=== PATIENT | male | born 1940 | race Caucasian/White ===

== ENCOUNTER 2018-01-24 01:04 | Observation (INO) | payer OTHER ==
[2018-01-24] MEDS: ONDANSETRON 4 MG INJ IV (01:50)
[2018-01-24 01:54] LABS: ADD MAN DIFF? NO
[2018-01-24 01:58] LABS: WHITE BLOOD COUNT 8.9 10^3/ul (4.8-10.8)
[2018-01-24 01:58] LABS: BASOPHILS % 0.2 % (0.0-2.0); EOSINOPHILS # 0.1 10^3/ul (0.0-0.5); EOSINOPHILS % 1.4 % (0.0-7.0); HEMATOCRIT 42.1 % (42.0-52.0); HEMOGLOBIN 14.5 g/dl (14.0-18.0); LYMPHOCYTES # 3.8 10^3/ul (0.8-2.9); LYMPHOCYTES % 43.4 % (15.0-51.0); MEAN CORPUSCULAR HGB CONC 34.4 g/dl (32.0-37.0); MEAN CORPUSCULAR VOLUME 98.8 fl (82.0-101.0); MEAN PLATELET VOLUME 10.5 fl (7.4-10.4); MONOCYTE # 0.6 10^3/ul (0.3-0.9); NEUTROPHIL # 4.2 10^3/ul (1.6-7.5); NEUTROPHILS % 47.8 % (39.0-77.0); PLATELET COUNT 123 10^3/UL (140-415); RED BLOOD COUNT 4.26 10^6/ul (4.70-6.10); RED CELL DISTRIBUTION WIDTH 13.2 % (11.5-14.5)
[2018-01-24 02:16] LABS: ANION GAP 13 (8-16); BLOOD UREA NITROGEN 15 mg/dl (7-20); CARBON DIOXIDE 26 mmol/L (21-31); CHLORIDE 108 mmol/L (97-110); CREATININE 1.02 mg/dl (0.61-1.24); GLUCOSE 107 mg/dl (70-220); POTASSIUM 4.1 mmol/L (3.5-5.1); SODIUM 143 mmol/L (135-144)
[2018-01-24 02:17] LABS: INR 1.04; PROTIME 13.7 Sec (11.9-14.9); PT RATIO 1.1
[2018-01-24 02:27] LABS: B-TYPE NATRIURETIC PEPTIDE 86 PG/ML (0-450)
[2018-01-24 02:29] LABS: TROPONIN-I < 0.012 ng/ml (0.00-0.12)
[2018-01-24] MEDS: ATROPINE 1 MG INJ IV (03:53)
[2018-01-24] MEDS ORDERED: ACETAMINOPHEN 325 MG TAB PO (05:00)
[2018-01-24] MEDS ORDERED: NITROGLYCERIN (SL) 0.4 MG TAB SL (05:00)
[2018-01-24] MEDS ORDERED: BISACODYL (EC) 5 MG TAB PO (05:00)
[2018-01-24] MEDS ORDERED: DOCUSATE SODIUM 100 MG CAP PO (05:00)
[2018-01-24] MEDS ORDERED: ONDANSETRON 4 MG INJ IV (05:00)
[2018-01-24 06:10] LABS: HEMOGLOBIN A1C 5.3 % (0-5.9)
[2018-01-24 06:15] LABS: MAGNESIUM 1.9 mg/dl (1.7-2.5)
[2018-01-24 07:54] LABS: CREATINE KINASE 52 IU/L (23-200)
[2018-01-24 08:06] LABS: CK INDEX 1.3; TROPONIN-I 0.013 ng/ml (0.00-0.12)
[2018-01-24 08:07] LABS: CK-MB 0.65 ng/ml (0.0-2.4)
[2018-01-24] MEDS: FINASTERIDE 5 MG TAB PO (08:22)
[2018-01-24] MEDS: NACL 0.9% 3 ML SYG IV (08:23)
[2018-01-24 13:46] LABS: CREATINE KINASE 42 IU/L (23-200)
[2018-01-24 14:00] LABS: CK INDEX 1.3
[2018-01-24 14:02] LABS: CK-MB 0.54 ng/ml (0.0-2.4); TROPONIN-I < 0.012 ng/ml (0.00-0.12)
[2018-01-24] MEDS: TAMSULOSIN (SR) 0.4 MG CAP PO (16:39)
[2018-01-24] MEDS: ATORVASTATIN 40 MG TAB PO (23:29)
[2018-01-25 06:25] LABS: ADD MAN DIFF? NO
[2018-01-25 06:29] LABS: WHITE BLOOD COUNT 7.4 10^3/ul (4.8-10.8)
[2018-01-25 06:29] LABS: BASOPHILS % 0.1 % (0.0-2.0); EOSINOPHILS # 0.1 10^3/ul (0.0-0.5); EOSINOPHILS % 1.1 % (0.0-7.0); HEMATOCRIT 41.7 % (42.0-52.0); HEMOGLOBIN 14.3 g/dl (14.0-18.0); LYMPHOCYTES % 39.9 % (15.0-51.0); MEAN CORPUSCULAR HEMOGLOBIN 33.6 pg (29.0-33.0); MEAN CORPUSCULAR HGB CONC 34.3 g/dl (32.0-37.0); MEAN CORPUSCULAR VOLUME 97.9 fl (82.0-101.0); MEAN PLATELET VOLUME 10.3 fl (7.4-10.4); MONOCYTE # 0.5 10^3/ul (0.3-0.9); MONOCYTES % 6.9 % (0.0-11.0); NEUTROPHIL # 3.8 10^3/ul (1.6-7.5); NEUTROPHILS % 51.7 % (39.0-77.0); PLATELET COUNT 111 10^3/UL (140-415); RED BLOOD COUNT 4.26 10^6/ul (4.70-6.10); RED CELL DISTRIBUTION WIDTH 13.2 % (11.5-14.5)
[2018-01-25 06:49] LABS: CREATINE KINASE 39 IU/L (23-200)
[2018-01-25 06:57] LABS: ALANINE AMINOTRANSFERASE 18 IU/L (13-69); ALBUMIN 3.7 g/dl (3.3-4.9); ALBUMIN/GLOBULIN RATIO 1.27; ALKALINE PHOSPHATASE 52 IU/L (42-121); ANION GAP 14 (8-16); ASPARTATE AMINO TRANSFERASE 17 IU/L (15-46); BILIRUBIN,INDIRECT 0.5 mg/dl (0-1.1); BILIRUBIN,TOTAL 0.5 mg/dl (0.2-1.3); BLOOD UREA NITROGEN 16 mg/dl (7-20); CALCIUM 9.2 mg/dl (8.4-10.2); CARBON DIOXIDE 28 mmol/L (21-31); CHLORIDE 106 mmol/L (97-110); CREATININE 0.91 mg/dl (0.61-1.24); GLUCOSE 100 mg/dl (70-220); POTASSIUM 4.4 mmol/L (3.5-5.1); SODIUM 144 mmol/L (135-144); TOTAL PROTEIN 6.6 g/dl (6.1-8.1)
[2018-01-25 07:02] LABS: CK INDEX 1.5; TROPONIN-I < 0.012 ng/ml (0.00-0.12)
[2018-01-25 07:21] LABS: CHOL/HDL RATIO 3.7 RATIO; HDL CHOLESTEROL 45 mg/dl (31-75); LDL CHOLESTEROL,CALCULATED 94 mg/dl; TRIGLYCERIDES 150 mg/dl (0-149)
[2018-01-25 07:21] LABS: CHOLESTEROL 169 mg/dl (100-200)
[2018-01-25] MEDS: ASPIRIN (EC) 81 MG TAB PO (08:25)
[2018-01-25] MEDS: FINASTERIDE 5 MG TAB PO (08:25)
[2018-01-25 08:42] LABS: FREE T4 (FREE THYROXINE) 1.17 ng/dl (0.78-2.44)
[2018-01-25] MEDS: REGADENOSON 0.4 MG/5 ML SYG (09:52)
== END 2018-01-25 15:00 | disposition home or self-care (01) ==
LOC: E/R 01:04 → MS3 04:57
DX: R07.9 Chest pain, unspecified (principal); I25.10 Atherosclerotic heart disease of native coronary artery without angina pectoris; Z95.5 Presence of coronary angioplasty implant and graft; R00.1 Bradycardia, unspecified; R42 Dizziness and giddiness; I10 Essential (primary) hypertension; E78.00 Pure hypercholesterolemia, unspecified; N40.0 Benign prostatic hyperplasia without lower urinary tract symptoms; I25.2 Old myocardial infarction; Z82.49 Family history of ischemic heart disease and other diseases of the circulatory system
CPT/HCPCS: 36415; 70450; 71045; 78452; 80048; 80053; 80061; 82550; 82553; 83036; 83735; 83880; 84439; 84443; 84484; 85025; 85610; 85730; 93005; 93017; 93306; 96374; 96375; 99291-25